=== PATIENT | female | born 1940 | race Caucasian/White ===

== ENCOUNTER 2017-12-09 09:22 | Day surgery (SDC) | payer MEDICARE, BC ==
[~2017-12-09 09:22] MED LIST: ALBU90OI INH; AMLO5 PO; ARTHRITIS PAIN PO; ASPI81CH; ASPI81CH PO; ATOR10; ATOR20 PO; Amlodipine Besy10 MG; CRANBERRY PO; ENOX40I SC; EYE VITAMIN PO; GEMF600 PO; Gemfibrozil600 MG; Glimepiride4 MG; Glimepiride4 MG PO; Hair, Skin & N1 EACH PO; KRILL OIL PO; KRILL OIL500 MG; LOSARTAN-HCTZ1 EAC1; LOSHYD100 PO; METF500 PO; METO10; Metformin HCl1000 MG; OXYACE5T PO; Omeprazole20 M1 PO; SITA50T2; SITA50T2 PO
== END 2017-12-09 22:45 | disposition home or self-care (01) ==
LOC: CT 09:22
PROVIDERS: Internal Medicine Nephrology; Radiology Diagnostic Radiology
PROC: 0TB13ZX Excision of Left Kidney, Percutaneous Approach, Diagnostic (ICD-10-PCS; principal; 2017-12-09 11:00)
DX: E11.22 Type 2 diabetes mellitus with diabetic chronic kidney disease (principal); I12.9 Hypertensive chronic kidney disease with stage 1 through stage 4 chronic kidney disease, or unspecified chronic kidney disease; E11.21 Type 2 diabetes mellitus with diabetic nephropathy; N18.3 Chronic kidney disease, stage 3 (moderate); N25.81 Secondary hyperparathyroidism of renal origin; E78.00 Pure hypercholesterolemia, unspecified
CPT/HCPCS: 50200; 77012; 88305; 88313; 88329; 88346; 88348; 88350

== ENCOUNTER → 2018-02-12 | Outpatient (CLI) | payer MEDICARE, BC ==
[2018-02-12 16:13] LABS: Percent Saturation 30.5 % (15.0-50.0)
== END | disposition home or self-care (01) ==
LOC: LAB SHORT 11:30 → LAB 11:30
PROVIDERS: Internal Medicine Hematology & Oncology
DX: D50.0 Iron deficiency anemia secondary to blood loss (chronic) (principal)
CPT/HCPCS: 82728; 83540; 83550

== ENCOUNTER → 2018-04-12 | Outpatient (CLI) | payer MEDICARE, BC ==
[2018-04-12 17:27] LABS: Percent Saturation 29.8 % (15.0-50.0)
== END ==
LOC: LAB 10:42 → LAB SHORT 10:42
PROVIDERS: Internal Medicine Hematology & Oncology
DX: D51.9 Vitamin B12 deficiency anemia, unspecified (principal); D50.0 Iron deficiency anemia secondary to blood loss (chronic)
CPT/HCPCS: 82607; 82728; 82746; 83540; 83550

== ENCOUNTER → 2018-09-23 | Outpatient (CLI) | payer MEDICARE, BC ==
[2018-09-23 09:06] LABS: BASOPHILS ABSOLUTE AUTO 0.04 K/mm3 (0.00-0.23); BASOPHILS PERCENT AUTO 1 % (0-2); EOSINOPHILS ABSOLUTE AUTO 0.26 K/mm3 (0.00-0.68); EOSINOPHILS PERCENT AUTO 4 % (0-6); Hematocrit 31.1 % (33.0-51.0); Hemoglobin 10.3 g/dL (11.5-16.0); IMMATURE GRAN ABSOLUTE AUTO 0.02 K/mm3 (0.00-0.10); IMMATURE GRAN PERCENT AUTO 0 % (0-1); LYMPHOCYTES ABSOLUTE AUTO 0.62 K/mm3 (0.84-5.20); LYMPHOCYTES PERCENT AUTO 10 % (21-46); MONOCYTES ABSOLUTE AUTO 0.42 K/mm3 (0.16-1.47); MONOCYTES PERCENT AUTO 7 % (4-13); Mean Corpuscular HGB 29.4 pg (26.0-34.0); Mean Corpuscular HGB Conc 33.1 g/dL (31.5-36.5); Mean Corpuscular Volume 89 fL (80-100); Mean Platelet Volume 10.3 fL (9.1-12.4); NEUTROPHILS ABSOLUTE AUTO 4.59 K/mm3 (1.96-9.15); NEUTROPHILS PERCENT AUTO 77 % (41-73); Platelet Count 157 K/mm3 (150-400); RDW Coefficient Variation 14.6 % (11.7-14.2); RDW Standard Deviation 47.2 fL (35.1-46.3); White Blood Cell Count 5.95 K/mm3 (4.00-11.30)
[2018-09-23 09:22] LABS: Albumin, Blood 2.8 g/dL (3.4-5.0); Albumin/Globulin Ratio 0.7 (0.8-1.8); Bilirubin, Total 0.6 mg/dL (0.1-1.0); Bun/Creatinine Ratio 17.7 (12.0-20.0); Calcium, Blood 9.4 mg/dL (8.5-10.1); Creatinine, Blood 1.58 mg/dL (0.40-1.00); Globulin, Blood 3.8 g/dL (2.2-4.0); Potassium, Blood 3.4 mmol/L (3.5-5.5); Total Protein, Blood 6.6 g/dL (6.4-8.2)
== END ==
LOC: LAB EV 08:58 → LAB SHORT 08:58
PROVIDERS: Physician Assistant
DX: I51.7 Cardiomegaly (principal)
CPT/HCPCS: 80053; 83880; 85025

== ENCOUNTER → 2018-12-06 | Outpatient (CLI) | payer MEDICARE, BC ==
[2018-12-06 15:20] LABS: Bun/Creatinine Ratio 18.9 (12.0-20.0); Creatinine, Blood 1.85 mg/dL (0.40-1.00); Potassium, Blood 3.4 mmol/L (3.5-5.5)
== END | disposition home or self-care (01) ==
LOC: LAB SHORT 15:05 → LAB EV 15:05
PROVIDERS: Physician Assistant Medical
DX: J18.1 Lobar pneumonia, unspecified organism (principal)
CPT/HCPCS: 80048; 83880

== ENCOUNTER → 2018-12-22 | Outpatient (CLI) | payer MEDICARE, BC | END | disposition home or self-care (01) | LOC: LAB 15:07 → LAB SHORT 15:07 | PROVIDERS: Internal Medicine Hematology & Oncology | DX: D50.0 Iron deficiency anemia secondary to blood loss (chronic) (principal) | CPT/HCPCS: 83540; 83550 ==

== ENCOUNTER → 2019-01-12 | Outpatient (CLI) | payer MEDICARE, BC ==
[2019-01-12 15:55] LABS: BASOPHILS ABSOLUTE AUTO 0.04 K/mm3 (0.00-0.23); BASOPHILS PERCENT AUTO 1 % (0-2); EOSINOPHILS ABSOLUTE AUTO 0.12 K/mm3 (0.00-0.68); EOSINOPHILS PERCENT AUTO 2 % (0-6); Hematocrit 29.5 % (33.0-51.0); IMMATURE GRAN ABSOLUTE AUTO 0.02 K/mm3 (0.00-0.10); IMMATURE GRAN PERCENT AUTO 0 % (0-1); LYMPHOCYTES ABSOLUTE AUTO 0.67 K/mm3 (0.84-5.20); LYMPHOCYTES PERCENT AUTO 10 % (21-46); MONOCYTES PERCENT AUTO 5 % (4-13); Mean Corpuscular HGB 29.9 pg (26.0-34.0); Mean Corpuscular HGB Conc 33.9 g/dL (31.5-36.5); Mean Corpuscular Volume 88 fL (80-100); NEUTROPHILS ABSOLUTE AUTO 5.33 K/mm3 (1.96-9.15); NEUTROPHILS PERCENT AUTO 82 % (41-73); Platelet Count 164 K/mm3 (150-400); RDW Coefficient Variation 16.1 % (11.7-14.2); RDW Standard Deviation 51.8 fL (35.1-46.3); Red Blood Cell Count 3.34 M/mm3 (3.80-5.20); White Blood Cell Count 6.48 K/mm3 (4.00-11.30)
== END ==
LOC: LAB EV 15:48 → LAB SHORT 15:48
PROVIDERS: Physician Assistant Medical
DX: M79.673 Pain in unspecified foot (principal)
CPT/HCPCS: 84550; 85025

== ENCOUNTER → 2020-01-17 | Outpatient (CLI) | payer MEDICARE, BC ==
[2020-01-17 20:59] LABS: Albumin, Blood 1.9 g/dL (3.4-5.0); Albumin/Globulin Ratio 0.6 (0.8-1.8); Bilirubin, Direct 0.1 mg/dL (0.0-0.3); Bilirubin, Indirect 0.3 mg/dL (0.1-0.7); Bilirubin, Total 0.4 mg/dL (0.1-1.0); Bun/Creatinine Ratio 19.5 (12.0-20.0); Calcium, Blood 7.3 mg/dL (8.5-10.1); Creatinine, Blood 2.36 mg/dL (0.40-1.00); Globulin, Blood 3.2 g/dL (2.2-4.0); Potassium, Blood 4.2 mmol/L (3.5-5.5); Total Protein, Blood 5.1 g/dL (6.4-8.2)
== END | disposition home or self-care (01) ==
LOC: LAB SHORT 19:29 → LAB 19:29
PROVIDERS: Internal Medicine Hematology & Oncology
DX: C22.0 Liver cell carcinoma (principal)
CPT/HCPCS: 80053; 82105; 82248

== ENCOUNTER 2020-02-21 08:03 | Day surgery (SDC) | payer MEDICARE, BC ==
[~2020-02-21] VITALS: Ht 154.9 cm; Wt 77.7 kg
[~2020-02-21 08:03] MED LIST changes: +BASAGLAR K100 UNIT/3 SC; +BUME2 PO; +Catapres-Tts 11 EACH TOP; +FURO80 PO; +LOSARTAN POTAS100 M1 PO; +METO5 PO; +Nexavar200 MG PO; +POTA10T PO
[2020-02-21] MEDS ORDERED: CLON.1 PO (08:40)
--- NOTE | 2020-02-21 12:00 | NUR ---
PT BACK TO RECOVERY ROOM VIA BED AFTER PROCEDURE. AWAKE AND ALERT. DENIES ANY PAIN OR DISCOMFORT. VSS. RIGHT PERM CATH CHEST AND JUGULAR SITE CLEAN AND DRY.
--- NOTE | 2020-02-21 12:42 | NUR ---
PT EATING LUNCH, DENIES NEEDS. CALL LIGHT IN REACH. RIGHT CHEST AND JUGULAR SITES REMAIN CLEAN, DRY, AND INTACT.
--- NOTE | 2020-02-21 13:34 | NUR ---
PT SLEEPING ON SIDE, CALL LIGHT IN REACH. VSS.
--- NOTE | 2020-02-21 13:50 | NUR ---
PERM CATH VISIBLE AT JUGULAR ACCESS SITE. DR RICO NOTIFIED, PLACED SUTURE AT SITE. DRESSED WITH STERI STRIPS AND CLOTH DOT. NO BLEEDING OR OOZING NOTED FROM JUGULAR SITE OR TUNNELED CHEST SITE.
--- NOTE | 2020-02-21 14:11 | NUR ---
IV DC'D, CATH INTACT. PT GIVEN DC INSTRUCTIONS AND FOLLOW UP INFO, VERBALIZED UNDERSTANDING. WILL FOLLOW UP AT [facility] TOMORROW MORNING SCHEDULED. VSS. OUT TO CAR VIA WHEELCHAIR.
== END 2020-02-21 14:00 | disposition home or self-care (01) ==
LOC: MHTC 08:03
DX: I12.0 Hypertensive chronic kidney disease with stage 5 chronic kidney disease or end stage renal disease (principal); E11.22 Type 2 diabetes mellitus with diabetic chronic kidney disease; N18.6 End stage renal disease; E78.5 Hyperlipidemia, unspecified; D63.1 Anemia in chronic kidney disease; J45.909 Unspecified asthma, uncomplicated; Z88.8 Allergy status to other drugs, medicaments and biological substances; Z79.899 Other long term (current) drug therapy; Z79.4 Long term (current) use of insulin; C22.8 Malignant neoplasm of liver, primary, unspecified as to type
CPT/HCPCS: 36558; 76937; 99152; C1750; C1769; C1894; J1644; J2250; J3010; J7040

== ENCOUNTER 2020-05-23 12:38 | Day surgery (SDC) | payer MEDICARE, BC, OTHER ==
[~2020-05-23] VITALS: Ht 157.5 cm; Wt 83.0 kg
[~2020-05-23 12:38] MED LIST changes: +CLON.1 PO; +CLOP75 PO; +KRILL OIL 1,001 EACH PO; +UREA226.8 GM TOP
[2020-05-23 14:33] LABS: BASOPHILS ABSOLUTE AUTO 0.05 K/mm3 (0.00-0.23); BASOPHILS PERCENT AUTO 1 % (0-2); EOSINOPHILS ABSOLUTE AUTO 0.17 K/mm3 (0.00-0.68); EOSINOPHILS PERCENT AUTO 3 % (0-6); Hematocrit 28.3 % (33.0-51.0); IMMATURE GRAN ABSOLUTE AUTO 0.02 K/mm3 (0.00-0.10); IMMATURE GRAN PERCENT AUTO 0 % (0-1); LYMPHOCYTES ABSOLUTE AUTO 1.03 K/mm3 (0.84-5.20); LYMPHOCYTES PERCENT AUTO 18 % (21-46); MONOCYTES PERCENT AUTO 7 % (4-13); Mean Corpuscular HGB 28.4 pg (26.0-34.0); Mean Corpuscular HGB Conc 31.8 g/dL (31.5-36.5); Mean Corpuscular Volume 89 fL (80-100); Mean Platelet Volume 10.2 fL (9.1-12.4); NEUTROPHILS ABSOLUTE AUTO 4.21 K/mm3 (1.96-9.15); NEUTROPHILS PERCENT AUTO 72 % (41-73); Platelet Count 185 K/mm3 (150-400); RDW Coefficient Variation 19.3 % (11.7-14.2); RDW Standard Deviation 63.7 fL (35.1-46.3); Red Blood Cell Count 3.17 M/mm3 (3.80-5.20); White Blood Cell Count 5.88 K/mm3 (4.00-11.30)
[2020-05-23 14:53] LABS: Bun/Creatinine Ratio 13.4 (12.0-20.0); Calcium, Blood 7.8 mg/dL (8.5-10.1); Creatinine, Blood 3.73 mg/dL (0.40-1.00); Potassium, Blood 3.7 mmol/L (3.5-5.5)
== END 2020-05-23 22:50 | disposition home or self-care (01) ==
LOC: MHTC 12:38
PROVIDERS: Radiology Diagnostic Radiology
DX: I12.0 Hypertensive chronic kidney disease with stage 5 chronic kidney disease or end stage renal disease (principal); E11.22 Type 2 diabetes mellitus with diabetic chronic kidney disease; N18.6 End stage renal disease; J45.909 Unspecified asthma, uncomplicated; D63.1 Anemia in chronic kidney disease; Z99.2 Dependence on renal dialysis; Z88.1 Allergy status to other antibiotic agents; Z88.8 Allergy status to other drugs, medicaments and biological substances; Z79.899 Other long term (current) drug therapy; E78.5 Hyperlipidemia, unspecified; Z79.4 Long term (current) use of insulin
CPT/HCPCS: 76937; 80048; 82947; 85025; 85347; 99152; 99153; C1725; C1769; C1894; J1644; J2250; J3010; J7030; J7040; Q9967

== ENCOUNTER 2020-06-11 00:41 | Day surgery (SDC) | payer MEDICARE, BC | END 2020-06-11 23:00 | disposition home or self-care (01) | LOC: WOUND 00:41 | DX: I96 Gangrene, not elsewhere classified (principal); L89.150 Pressure ulcer of sacral region, unstageable; I12.0 Hypertensive chronic kidney disease with stage 5 chronic kidney disease or end stage renal disease; E11.22 Type 2 diabetes mellitus with diabetic chronic kidney disease; N18.6 End stage renal disease; D63.1 Anemia in chronic kidney disease; E78.5 Hyperlipidemia, unspecified; J45.909 Unspecified asthma, uncomplicated; K74.60 Unspecified cirrhosis of liver; E11.36 Type 2 diabetes mellitus with diabetic cataract; H26.9 Unspecified cataract; E11.52 Type 2 diabetes mellitus with diabetic peripheral angiopathy with gangrene; M10.9 Gout, unspecified; Z85.828 Personal history of other malignant neoplasm of skin; Z85.05 Personal history of malignant neoplasm of liver; Z92.21 Personal history of antineoplastic chemotherapy; Z79.4 Long term (current) use of insulin; Z79.02 Long term (current) use of antithrombotics/antiplatelets; Z79.899 Other long term (current) drug therapy; Z99.2 Dependence on renal dialysis; Z96.652 Presence of left artificial knee joint; Z88.8 Allergy status to other drugs, medicaments and biological substances | CPT/HCPCS: G0463 ==

== ENCOUNTER 2020-06-18 00:31 | Day surgery (SDC) | payer MEDICARE, BC | END 2020-06-18 22:39 | disposition home or self-care (01) | LOC: WOUND 00:31 | DX: L89.159 Pressure ulcer of sacral region, unspecified stage (principal); I10 Essential (primary) hypertension; E78.5 Hyperlipidemia, unspecified; E11.9 Type 2 diabetes mellitus without complications; J45.909 Unspecified asthma, uncomplicated; Z79.899 Other long term (current) drug therapy; Z79.4 Long term (current) use of insulin ==

== ENCOUNTER 2020-06-20 13:59 | Day surgery (SDC) | payer MEDICARE, BC ==
[~2020-06-20] VITALS: Ht 157.5 cm; Wt 84.0 kg
[2020-06-20] MEDS ORDERED: BASAGLAR SC (14:01)
--- NOTE | 2020-06-20 19:35 | NUR ---
PT TO ROOM AT APPROX 1855; BEDSIDE RPEORT FORM STEFANI MOURA. BEDSIDE REPORT GIVEN TO ONCOMING RN. VSS. TR BAND TO RIGHT RADIAL AND INCISION NOTED TO SHEMAR WITH TEGADERM NOTED TO HAVE SMALL AMOUNT OF BLOOD UNDER DRESSING.
--- NOTE | 2020-06-20 21:25 | NUR ---
DISCHARGE: TR BAND IN PLACE FOR ONE HOUR DEFLATED; NO S/S OF BLEEDING. BRUISING NOTED ABOVE TR BAND. NO CHANGES TO OTHER SITES PER ASSESSMENT. TEGADERM PLACED AND TR BAND REMOVED; ARMBOARD IN PLACE. PATIENT EDUCATED ON DISCHARGE INSTRUCTIONS; PAPERWORK SIGNED. IV FROM LEFT A/C REMOVED. PATIENT ASSISTED IN PUTTING HER CLOTHES BACK ON; ESCORTED OUT OF UNIT WITH BELONGINGS AND DISCHARGE PAPERWORK VIA WHEELCHAIR BY KP MARTINES; BRANDIE PICKED HER UP.
== END 2020-06-20 21:20 | disposition home or self-care (01) ==
LOC: MHTC 13:59 → PCU 18:49 → MHTC 21:20
DX: Z45.2 Encounter for adjustment and management of vascular access device (principal); I12.0 Hypertensive chronic kidney disease with stage 5 chronic kidney disease or end stage renal disease; E11.22 Type 2 diabetes mellitus with diabetic chronic kidney disease; N18.6 End stage renal disease; J44.9 Chronic obstructive pulmonary disease, unspecified; Z99.2 Dependence on renal dialysis; D63.1 Anemia in chronic kidney disease; Z88.1 Allergy status to other antibiotic agents; Z79.899 Other long term (current) drug therapy; Z79.4 Long term (current) use of insulin
CPT/HCPCS: 36902; 37607; 76937; 93005; 93010; 99152; 99153; C1725; C1769; C1894; J1644; J2250; J3010; J7030; Q9967

== ENCOUNTER 2020-06-22 10:59 | Observation (INO) | payer MEDICARE, BC ==
[~2020-06-22] VITALS: Ht 157.5 cm; Wt 83.6 kg
[~2020-06-22 10:59] MED LIST changes: +BASAGLAR SC
[2020-06-22 11:39] LABS: BASOPHILS ABSOLUTE AUTO 0.04 K/mm3 (0.00-0.23); BASOPHILS PERCENT AUTO 0 % (0-2); EOSINOPHILS ABSOLUTE AUTO 0.07 K/mm3 (0.00-0.68); EOSINOPHILS PERCENT AUTO 1 % (0-6); Hematocrit 27.4 % (33.0-51.0); Hemoglobin 8.4 g/dL (11.5-16.0); IMMATURE GRAN ABSOLUTE AUTO 0.08 K/mm3 (0.00-0.10); IMMATURE GRAN PERCENT AUTO 1 % (0-1); LYMPHOCYTES ABSOLUTE AUTO 0.56 K/mm3 (0.84-5.20); LYMPHOCYTES PERCENT AUTO 5 % (21-46); MONOCYTES ABSOLUTE AUTO 0.52 K/mm3 (0.16-1.47); MONOCYTES PERCENT AUTO 5 % (4-13); Mean Corpuscular HGB 27.6 pg (26.0-34.0); Mean Corpuscular HGB Conc 30.7 g/dL (31.5-36.5); Mean Corpuscular Volume 90 fL (80-100); Mean Platelet Volume 9.6 fL (9.1-12.4); NEUTROPHILS ABSOLUTE AUTO 10.41 K/mm3 (1.96-9.15); NEUTROPHILS PERCENT AUTO 89 % (41-73); Platelet Count 266 K/mm3 (150-400); RDW Coefficient Variation 18.4 % (11.7-14.2); RDW Standard Deviation 59.7 fL (35.1-46.3); Red Blood Cell Count 3.04 M/mm3 (3.80-5.20); White Blood Cell Count 11.68 K/mm3 (4.00-11.30)
[2020-06-22 12:25] LABS: Albumin, Blood 2.2 g/dL (3.4-5.0); Albumin/Globulin Ratio 0.5 (0.8-1.8); Bilirubin, Total 0.6 mg/dL (0.1-1.0); Bun/Creatinine Ratio 14.9 (12.0-20.0); Calcium, Blood 7.7 mg/dL (8.5-10.1); Creatinine, Blood 2.89 mg/dL (0.40-1.00); Globulin, Blood 4.8 g/dL (2.2-4.0); Potassium, Blood 3.6 mmol/L (3.5-5.5)
[2020-06-22 12:32] LABS: Troponin I 0.691 ng/mL (0.000-0.040)
[2020-06-22] MEDS ORDERED: PLAVIX75 MG PO (13:46)
[2020-06-22] MEDS ORDERED: CALCIUM ACETAT667 M2 PO (13:46)
[2020-06-22] MEDS ORDERED: LOSA50 PO (13:47)
[2020-06-22] MEDS ORDERED: LANTUS SOL100 UNIT/1 (13:48)
[2020-06-22] MEDS ORDERED: CLON.1 PO (17:19)
--- NOTE | 2020-06-22 18:20 | NUR ---
PT ARRIVED TO THE UNIT VIA BED. SHE WAS ORIENTED TO THE ROOM. REPORTS MINIMAL CHEST PAIN. CARDIOLOGY CONSULTED. PLAN IS TO REPEAT TROPONINS AND FOLLOW TRENDS. WILL RECIEVE ECHO TOMORROW. POSSIBLE ANGIO OR STRESS TEST DEPENDING ON LABS.
[2020-06-22 18:50] LABS: Creatine Kinase MB 1.3 ng/mL (0.0-3.6); Creatine Kinase MB Index 1.7 (0.0-4.0); Troponin I 0.481 ng/mL (0.000-0.040)
--- NOTE | 2020-06-22 21:30 | NUR ---
ASSUMED CARE. AOX3, FRAILE APPEARING. CAME IN FOR CHEST PAIN MID-STERNUM THAT IS PRESENT WHEN SHE TAKES A DEEP BREATH AND OCCATIONALLY IS THERE THROUGHOUT THE DAY. DENIES ANY BLURRED VISION, DIZZINESS, NUMBNESS OR TINGLING, OR RADIATING PAIN. LUNG SOUNDS ARE CLEAR. REGULAR BM, ON DIALYSIS, MAKES LITTLE URINE. SKIN IS PALE, COOL, DRY. 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 SHE HAD ONE REMOVED FROM RIGHT UPPER CHEST A COUPLE MONTHS AGO AND THEY CUT DO DEEP, IT IS NOW AN OPEN WOUND TO THE PERMACATH TUBE. STAGE 3 PRESSURE ULCER TO COCCYX WITH 10% ESCAR, REST PALE PINK TISSUE. REDNESS ACROSS BOTTOM. PICTURES TAKEN, AND ON CHART. DRESSINGS CHANGED. DENIES ANY NEEDS JUST WANTS TO SLEEP. CALL LIGHT IN REACH.
[2020-06-22 21:31] LABS: Source, Urine Clean Catch
--- NOTE | 2020-06-22 21:36 | NUR ---
CALLED DR. IVY PER HIS REQUEST. ORDER RECEIVED FOR SOLUMEDROL 125MG IV, BLOOD CULTURES ON PERMA CATH, DIALYSIS TONIGHT, LEVAQUIN 500MG IV NOW. ua SENT TO LAB.
[2020-06-22 21:38] LABS: Appearance, Urine Clear (Clear); Bilirubin, Urine Neg (Neg); Blood, Urine Neg (Neg); Color, Urine Yellow (P-Yellow); Glucose Qualitative, Urine 1+ (Neg); Ketones, Urine Neg (Neg); Leukocyte Esterase, Urine Neg (Neg); Nitrite, Urine Neg (Neg); Protein, Urine 4+ (Neg); Urobilinogen, Urine NORM (Normal)
[2020-06-22 21:44] LABS: Red Blood Cells, Urine 0-2 /hpf (0-2); Squamous Epithelial Cells Mod /hpf (Few); White Blood Cells, Urine 0-2 /hpf (0-5)
[2020-06-22 21:45] LABS: Bacteria Mod /hpf
--- NOTE | 2020-06-22 22:11 | NUR ---
RECEIVED CALL FROM CHARGE REPORTING THAT DIALYSIS WILL BE HERE IN THE AM FOR DIALYSIS. CALLED DR. IVY AND VERIFIED. ASKED FOR ORDER FOR WOUND CULTURES, RECEIVED. PLAN IS TO DO DIALYSIS IN AM, WITH BLOOD CULTURES ON PERMA CATH. HOLD LEVAQUIN FOR NOW. COLLECTED WOUND CULTURES AND SENT TO LAB.
[2020-06-23 01:31] LABS: BASOPHILS ABSOLUTE AUTO 0.02 K/mm3 (0.00-0.23); BASOPHILS PERCENT AUTO 0 % (0-2); EOSINOPHILS PERCENT AUTO 0 % (0-6); Hematocrit 24.9 % (33.0-51.0); Hemoglobin 7.7 g/dL (11.5-16.0); IMMATURE GRAN ABSOLUTE AUTO 0.17 K/mm3 (0.00-0.10); IMMATURE GRAN PERCENT AUTO 1 % (0-1); LYMPHOCYTES ABSOLUTE AUTO 0.42 K/mm3 (0.84-5.20); LYMPHOCYTES PERCENT AUTO 3 % (21-46); MONOCYTES ABSOLUTE AUTO 0.31 K/mm3 (0.16-1.47); MONOCYTES PERCENT AUTO 2 % (4-13); Mean Corpuscular HGB 27.9 pg (26.0-34.0); Mean Corpuscular HGB Conc 30.9 g/dL (31.5-36.5); Mean Corpuscular Volume 90 fL (80-100); Mean Platelet Volume 10.2 fL (9.1-12.4); NEUTROPHILS ABSOLUTE AUTO 12.81 K/mm3 (1.96-9.15); NEUTROPHILS PERCENT AUTO 93 % (41-73); Platelet Count 227 K/mm3 (150-400); RDW Coefficient Variation 18.8 % (11.7-14.2); RDW Standard Deviation 61.8 fL (35.1-46.3); Red Blood Cell Count 2.76 M/mm3 (3.80-5.20); White Blood Cell Count 13.73 K/mm3 (4.00-11.30)
[2020-06-23 01:47] LABS: Anion Gap 10 mmol/L (6-16); Blood Urea Nitrogen 53 mg/dL (8-24); Bun/Creatinine Ratio 14.5 (12.0-20.0); CO2, Blood 29 mmol/L (21-32); Calcium, Blood 7.6 mg/dL (8.5-10.1); Chloride, Blood 95 mmol/L (98-108); Creatinine, Blood 3.66 mg/dL (0.40-1.00); Glomerular Filtration Rate 13 (60-); Glucose, Blood 196 mg/dL (70-99); Magnesium, Blood 1.9 mg/dL (1.6-2.4); Phosphorus, Blood 4.4 mg/dL (2.5-4.9); Potassium, Blood 4.1 mmol/L (3.5-5.5); Sodium, Blood 134 mmol/L (136-145)
[2020-06-23 01:50] LABS: CPK Creatine Kinase 67 U/L (26-193); Troponin I 0.406 ng/mL (0.000-0.040)
[2020-06-23 02:00] LABS: Creatine Kinase MB <1.0 ng/mL (0.0-3.6); Creatine Kinase MB Index Unable to Calculate (0.0-4.0)
--- NOTE | 2020-06-23 02:27 | NUR ---
TAX ACCOUNTING ASSISTANT CALLED AND REPORTED THE PATIENT CONVERTED INTO AFIB BUT IS RUNNING 80-90'S AND HOLDING. PATIENT IS SLEEPING COMFORTABLY IN ROOM. WILL MONITOR.
--- NOTE | 2020-06-23 04:57 | NUR ---
SHIFT SUMMARY: AOX3, 1 ASSIST WITH WALKER. REPORTS CHEST PAIN ONLY OCCURS WITH DEEP BREATHING. LUNG SOUNDS CLEAR T/O. DENIES ANY COUGH OR CONGESTIONS. HEADACHES OFF AND ON. DR. IVY ORDERED DIALSYS WHICH WILL BE THIS AM. BLOOD CULTURE OF PERMA CATH WILL BE DONE BEFORE DIALSYS. 125MCQ OF SOLUMEDROL WAS GIVEN PER ORDER, WHICH SHE REPORTED HELPED TO IMPROVE HER CHEST PAIN. WOULD CULTURES PERFORMED ON WOUNDS. WOUND ON RIGHT CHEST WALL FROM SKIN CANCER BEING REMOVED, OPEN DOWN TO PERMACATH TUBING, CLEANSED SITE AND COVERED WITH FOAM DRESSING, COCCYX STAGE 3 PRESSURE ULCER CLEANSED AND FOAM DRESSING APPLIED. WILL NEED ORDERS FOR WOUND CARE WITH CALCIUM ALGINATE. REDNESS TO BOTTOM. VS WNL, AFEBRILE, BLOOD SUGAR 232.ANTIBOTIC ON HOLD TILL BLOOD CULTURE PERFORMED. SLEPT WELL THROUGHOUT THE NIGHT. WILL REPORT TO DAY SHIFT. CALL LIGHT IN REACH.
[2020-06-23 12:41] LABS: CPK Creatine Kinase 58 U/L (26-193); Troponin I 0.252 ng/mL (0.000-0.040)
[2020-06-23 12:46] LABS: Creatine Kinase MB <1.0 ng/mL (0.0-3.6); Creatine Kinase MB Index Unable to Calculate (0.0-4.0)
--- NOTE | 2020-06-23 17:18 | NUR ---
SHIFT SUMMARY. A&OX4, SBA WITH FWW TO BATHROOM. PT DENIES PAIN, SOB, N/V. PT REPORTED CHEST DISCOMFORT HAD SUBSIDED THIS AM PRIOR TO CHANGE OF SHIFT. DIALYSIS AND FIRST PART OF CARDIAC STRESS TEST COMPLETED THIS AM. PT CONVERTED TO AFIB THEN TO AFLUTTER DURING DIALYSIS PER MEDICAL DOCTOR NUCLEAR MEDICINE. PT CONVERTED BACK TO NSR ONCE BACK TO MEDICAL FLOOR. PT IS NOW INTERMITTENTLY CONVERTING FROM NSR TO NSR WITH PVC'S TO AFIB AND BACK TO NSR, RATE DOES NOT CHANGE WITH RYTHM CHANGE. NO OTHER CHANGES OR CONCERNS.
--- NOTE | 2020-06-24 04:36 | NUR ---
SAWMILL SUPERVISOR SUMMARY PT HAD AN UNEVENTFUL NIGHT DENYING ANY C/P OR NAUSEA. PT SLEPT FOR MOST OF THE NIGHT AND IS CURRETLY SITTING UP IN BED READING A BOOK. PT IS AXO X4 AND IS ABLE TO MAKE HER NEEDS KNOWN.
[2020-06-24 05:13] LABS: Hematocrit 25.2 % (33.0-51.0); Hemoglobin 7.9 g/dL (11.5-16.0)
[2020-06-24 05:31] LABS: Anion Gap 9 mmol/L (6-16); Blood Urea Nitrogen 48 mg/dL (8-24); Bun/Creatinine Ratio 13.6 (12.0-20.0); CO2, Blood 32 mmol/L (21-32); Calcium, Blood 8.5 mg/dL (8.5-10.1); Chloride, Blood 97 mmol/L (98-108); Creatinine, Blood 3.53 mg/dL (0.40-1.00); Glomerular Filtration Rate 13 (60-); Glucose, Blood 139 mg/dL (70-99); Magnesium, Blood 2.2 mg/dL (1.6-2.4); Phosphorus, Blood 4.8 mg/dL (2.5-4.9); Potassium, Blood 3.5 mmol/L (3.5-5.5); Sodium, Blood 138 mmol/L (136-145)
[2020-06-24] MEDS ORDERED: HYDR1TAB94 PO (13:30)
--- NOTE | 2020-06-24 16:59 | NUR ---
1650 PT DISCHARGED HOME VIA PERSONAL VEHICLE ACCOMPANIED AND DRIVEN BY DAUGHTER. ESCORTED TO FACILITY ENTRANCE VIA W/C BY SN. IV REMOVED. D/C INSTRUCTIONS REVIEWED WITH PT AND COPY PROVIDED. HARD SCRIPT FOR NORCO GIVEN TO PT. DIALYSIS COMPLETED THIS AM. WOUND CARE TO SURGICAL SITE ABOVE PERMCATH INSERTION SITE AND COCCYX COMPLETED PRIOR TO D/C TODAY. NO NEW CHANGES OR CONCERNS.
== END 2020-06-24 16:50 | disposition home or self-care (01) ==
LOC: ER 10:59 → MEDS 11:00
PROVIDERS: Emergency Medicine; Internal Medicine Interventional Cardiology; Internal Medicine Nephrology; ADMIT Internal Medicine
DX: R07.9 Chest pain, unspecified (principal); R79.89 Other specified abnormal findings of blood chemistry; R06.02 Shortness of breath; I13.2 Hypertensive heart and chronic kidney disease with heart failure and with stage 5 chronic kidney disease, or end stage renal disease; E11.22 Type 2 diabetes mellitus with diabetic chronic kidney disease; N18.6 End stage renal disease; I50.33 Acute on chronic diastolic (congestive) heart failure; D63.1 Anemia in chronic kidney disease; E78.5 Hyperlipidemia, unspecified; D62 Acute posthemorrhagic anemia; I05.0 Rheumatic mitral stenosis; M19.90 Unspecified osteoarthritis, unspecified site; N25.81 Secondary hyperparathyroidism of renal origin; J44.9 Chronic obstructive pulmonary disease, unspecified; E87.1 Hypo-osmolality and hyponatremia; C22.8 Malignant neoplasm of liver, primary, unspecified as to type; Z79.02 Long term (current) use of antithrombotics/antiplatelets; Z79.4 Long term (current) use of insulin; Z79.899 Other long term (current) drug therapy; Z88.8 Allergy status to other drugs, medicaments and biological substances; Z99.2 Dependence on renal dialysis; Z87.891 Personal history of nicotine dependence; Z23 Encounter for immunization
CPT/HCPCS: 36415; 71046; 71260; 78452; 80053; 80069; 81001; 82550; 82553; 82947; 83690; 83735; 83880; 84484; 85014; 85018; 85025; 87040; 87070; 87075; 87077; 87086; 87186; 87205; 93005; 93010; 93017; 93306; 96372; 96374; 96375; 96376; 99285-25; A9270; A9270-GY; A9500; G0257; G0378; J0881; J2785; J2930; Q9967

== ENCOUNTER 2020-06-27 10:24 | Day surgery (SDC) | payer MEDICARE, BC ==
[~2020-06-27 10:24] MED LIST changes: -CALCIUM ACETAT667 M2 PO; -LANTUS SOL100 UNIT/1; -Nexavar200 MG PO; -PLAVIX75 MG PO
[2020-08-01] MEDS ORDERED: CLON.1 PO (17:04)
[2020-08-01] MEDS ORDERED: LOSA50 PO (17:08)
[2020-08-01] MEDS ORDERED: AURYXIA210 MG PO (17:09)
[2020-08-01] MEDS ORDERED: BASAGLAR K100 UNIT/6 SC (17:35)
[2020-08-02] MEDS ORDERED: HYDR1TAB94 PO (05:01)
== END 2020-06-27 14:00 | disposition home or self-care (01) ==
LOC: WOUND 10:24
DX: I96 Gangrene, not elsewhere classified (principal); L89.150 Pressure ulcer of sacral region, unstageable; I12.0 Hypertensive chronic kidney disease with stage 5 chronic kidney disease or end stage renal disease; E11.22 Type 2 diabetes mellitus with diabetic chronic kidney disease; N18.6 End stage renal disease; D63.1 Anemia in chronic kidney disease; E11.36 Type 2 diabetes mellitus with diabetic cataract; H26.9 Unspecified cataract; M10.9 Gout, unspecified; E78.5 Hyperlipidemia, unspecified; J45.909 Unspecified asthma, uncomplicated; Z92.21 Personal history of antineoplastic chemotherapy; Z99.2 Dependence on renal dialysis; Z96.652 Presence of left artificial knee joint; Z88.8 Allergy status to other drugs, medicaments and biological substances; Z79.02 Long term (current) use of antithrombotics/antiplatelets; Z79.899 Other long term (current) drug therapy
CPT/HCPCS: 87070; 87075; 87205

== ENCOUNTER → 2020-06-27 | Outpatient (CLI) | payer MEDICARE, BC ==
[~2020-06-27] MED LIST changes: +CALCIUM ACETAT667 M2 PO; +HYDR1TAB94 PO; +LANTUS SOL100 UNIT/1; +LOSA50 PO; +PLAVIX75 MG PO
[2020-06-27 15:26] LABS: Percent Saturation 38.5 % (15.0-50.0)
== END | disposition home or self-care (01) ==
LOC: LAB SHORT 13:56 → LAB 13:56
PROVIDERS: Internal Medicine Hematology & Oncology
DX: D50.0 Iron deficiency anemia secondary to blood loss (chronic) (principal)
CPT/HCPCS: 82728; 83540; 83550

== ENCOUNTER 2020-07-05 00:11 | Day surgery (SDC) | payer MEDICARE, BC ==
[~2020-07-05 00:11] MED LIST changes: +CALCIUM ACETAT667 M2 PO; +LANTUS SOL100 UNIT/1; +Nexavar200 MG PO; +PLAVIX75 MG PO
== END 2020-07-05 23:16 | disposition home or self-care (01) ==
LOC: WOUND 00:11
DX: L89.159 Pressure ulcer of sacral region, unspecified stage (principal); I10 Essential (primary) hypertension; E78.5 Hyperlipidemia, unspecified; J45.909 Unspecified asthma, uncomplicated; E11.9 Type 2 diabetes mellitus without complications

== ENCOUNTER 2020-07-12 08:39 | Day surgery (SDC) | payer MEDICARE, BC | END 2020-07-12 23:36 | disposition home or self-care (01) | LOC: WOUND 08:39 | DX: I96 Gangrene, not elsewhere classified (principal); L89.153 Pressure ulcer of sacral region, stage 3; E11.52 Type 2 diabetes mellitus with diabetic peripheral angiopathy with gangrene; E11.36 Type 2 diabetes mellitus with diabetic cataract; H26.9 Unspecified cataract; I13.2 Hypertensive heart and chronic kidney disease with heart failure and with stage 5 chronic kidney disease, or end stage renal disease; E11.22 Type 2 diabetes mellitus with diabetic chronic kidney disease; N18.6 End stage renal disease; I50.9 Heart failure, unspecified; D63.1 Anemia in chronic kidney disease; E78.5 Hyperlipidemia, unspecified; J45.909 Unspecified asthma, uncomplicated; M10.9 Gout, unspecified; E11.42 Type 2 diabetes mellitus with diabetic polyneuropathy; K21.9 Gastro-esophageal reflux disease without esophagitis; Z88.8 Allergy status to other drugs, medicaments and biological substances; Z79.4 Long term (current) use of insulin; Z79.02 Long term (current) use of antithrombotics/antiplatelets; Z79.899 Other long term (current) drug therapy; Z92.21 Personal history of antineoplastic chemotherapy; Z85.05 Personal history of malignant neoplasm of liver; Z96.659 Presence of unspecified artificial knee joint ==

== ENCOUNTER 2020-07-16 00:38 | Day surgery (SDC) | payer MEDICARE, BC | END 2020-07-16 23:16 | disposition home or self-care (01) | LOC: WOUND 00:38 | DX: L89.159 Pressure ulcer of sacral region, unspecified stage (principal) ==

== ENCOUNTER 2020-07-18 02:07 | Day surgery (SDC) | payer MEDICARE, BC | END 2020-07-18 23:17 | disposition home or self-care (01) | LOC: WOUND 02:07 | DX: I96 Gangrene, not elsewhere classified (principal); L89.153 Pressure ulcer of sacral region, stage 3; E11.52 Type 2 diabetes mellitus with diabetic peripheral angiopathy with gangrene; E11.36 Type 2 diabetes mellitus with diabetic cataract; H26.9 Unspecified cataract; M17.0 Bilateral primary osteoarthritis of knee; I12.0 Hypertensive chronic kidney disease with stage 5 chronic kidney disease or end stage renal disease; E11.22 Type 2 diabetes mellitus with diabetic chronic kidney disease; N18.6 End stage renal disease; D63.1 Anemia in chronic kidney disease; K74.60 Unspecified cirrhosis of liver; M10.9 Gout, unspecified; E78.5 Hyperlipidemia, unspecified; J45.909 Unspecified asthma, uncomplicated; Z88.2 Allergy status to sulfonamides; Z79.02 Long term (current) use of antithrombotics/antiplatelets; Z79.4 Long term (current) use of insulin; Z79.899 Other long term (current) drug therapy; Z92.21 Personal history of antineoplastic chemotherapy ==

== ENCOUNTER 2020-07-20 00:22 | Day surgery (SDC) | payer MEDICARE, BC | END 2020-07-20 22:52 | disposition home or self-care (01) | LOC: WOUND 00:22 | DX: I96 Gangrene, not elsewhere classified (principal); L89.153 Pressure ulcer of sacral region, stage 3; E11.52 Type 2 diabetes mellitus with diabetic peripheral angiopathy with gangrene; I12.0 Hypertensive chronic kidney disease with stage 5 chronic kidney disease or end stage renal disease; E11.22 Type 2 diabetes mellitus with diabetic chronic kidney disease; N18.6 End stage renal disease; D63.1 Anemia in chronic kidney disease; E11.36 Type 2 diabetes mellitus with diabetic cataract; H26.9 Unspecified cataract; J45.909 Unspecified asthma, uncomplicated; K74.60 Unspecified cirrhosis of liver; M10.9 Gout, unspecified; M19.90 Unspecified osteoarthritis, unspecified site; Z92.21 Personal history of antineoplastic chemotherapy; Z79.02 Long term (current) use of antithrombotics/antiplatelets; Z79.4 Long term (current) use of insulin; Z79.899 Other long term (current) drug therapy; Z88.8 Allergy status to other drugs, medicaments and biological substances ==

== ENCOUNTER 2020-07-23 01:09 | Day surgery (SDC) | payer MEDICARE, BC | END 2020-07-23 23:08 | disposition home or self-care (01) | LOC: WOUND 01:09 | DX: L89.159 Pressure ulcer of sacral region, unspecified stage (principal) ==

== ENCOUNTER 2020-07-25 00:56 | Day surgery (SDC) | payer MEDICARE, BC ==
[~2020-07-25 00:56] MED LIST changes: -CALCIUM ACETAT667 M2 PO; -LANTUS SOL100 UNIT/1; -Nexavar200 MG PO; -PLAVIX75 MG PO
[2020-07-25] MEDS ORDERED: AMLO5 PO (13:56)
[2020-07-25] MEDS ORDERED: UREA226.8 GM (13:58)
[2020-07-25] MEDS ORDERED: KRILL OIL 1,001 EACH PO (13:58)
[2020-08-01] MEDS ORDERED: CLON.1 PO (17:04)
[2020-08-01] MEDS ORDERED: LOSA50 PO (17:08)
[2020-08-01] MEDS ORDERED: AURYXIA210 MG PO (17:09)
[2020-08-01] MEDS ORDERED: BASAGLAR K100 UNIT/6 SC (17:35)
== END 2020-07-25 22:43 | disposition home or self-care (01) ==
LOC: WOUND 00:56
DX: I96 Gangrene, not elsewhere classified (principal); L89.153 Pressure ulcer of sacral region, stage 3; I12.0 Hypertensive chronic kidney disease with stage 5 chronic kidney disease or end stage renal disease; E11.22 Type 2 diabetes mellitus with diabetic chronic kidney disease; N18.6 End stage renal disease; D63.1 Anemia in chronic kidney disease; E11.36 Type 2 diabetes mellitus with diabetic cataract; H26.9 Unspecified cataract; J45.909 Unspecified asthma, uncomplicated; M10.9 Gout, unspecified; M19.90 Unspecified osteoarthritis, unspecified site; Z92.21 Personal history of antineoplastic chemotherapy; Z88.8 Allergy status to other drugs, medicaments and biological substances; Z79.02 Long term (current) use of antithrombotics/antiplatelets; Z79.4 Long term (current) use of insulin; Z79.899 Other long term (current) drug therapy
CPT/HCPCS: J3010; J7040

== ENCOUNTER 2020-07-25 12:55 | Day surgery (SDC) | payer MEDICARE, BC ==
[~2020-07-25] VITALS: Ht 157.5 cm; Wt 173.0 kg
[~2020-07-25 12:55] MED LIST changes: +CALCIUM ACETAT667 M2 PO; +LANTUS SOL100 UNIT/1; +Nexavar200 MG PO; +PLAVIX75 MG PO
[2020-07-25] MEDS ORDERED: AMLO5 PO (13:56)
[2020-07-25] MEDS ORDERED: CLON.1 PO (13:57)
[2020-07-25] MEDS ORDERED: KRILL OIL 1,001 EACH PO (13:58)
[2020-07-25] MEDS ORDERED: FURO40 PO (13:58)
[2020-07-25] MEDS ORDERED: UREA226.8 GM (13:58)
--- NOTE | 2020-07-25 19:13 | NUR ---
PT DRESSED, IV DC'D INTACT, DC'D BY WC BY THIS RN W WRIST SPLINT PLACED
== END 2020-07-25 22:43 | disposition home or self-care (01) ==
LOC: MHTC 12:55
DX: Z49.01 Encounter for fitting and adjustment of extracorporeal dialysis catheter (principal); I12.0 Hypertensive chronic kidney disease with stage 5 chronic kidney disease or end stage renal disease; E11.22 Type 2 diabetes mellitus with diabetic chronic kidney disease; N18.6 End stage renal disease; D63.1 Anemia in chronic kidney disease; E78.5 Hyperlipidemia, unspecified; J44.9 Chronic obstructive pulmonary disease, unspecified; M17.0 Bilateral primary osteoarthritis of knee; D50.9 Iron deficiency anemia, unspecified; E55.9 Vitamin D deficiency, unspecified; Z79.899 Other long term (current) drug therapy; Z88.8 Allergy status to other drugs, medicaments and biological substances; Z79.01 Long term (current) use of anticoagulants; Z79.4 Long term (current) use of insulin
CPT/HCPCS: 76937; 99152; 99153; C1769; C1894; J1644; J7030; Q9967

== ENCOUNTER 2020-07-27 00:38 | Day surgery (SDC) | payer MEDICARE, BC ==
[~2020-07-27 00:38] MED LIST changes: -CALCIUM ACETAT667 M2 PO; -LANTUS SOL100 UNIT/1; -Nexavar200 MG PO; -PLAVIX75 MG PO; +UREA226.8 GM
[2020-08-01] MEDS ORDERED: CLON.1 PO (17:04)
[2020-08-01] MEDS ORDERED: LOSA50 PO (17:08)
[2020-08-01] MEDS ORDERED: AURYXIA210 MG PO (17:09)
[2020-08-01] MEDS ORDERED: BASAGLAR K100 UNIT/6 SC (17:35)
[2020-08-02] MEDS ORDERED: HYDR1TAB94 PO (05:01)
== END 2020-07-27 23:58 | disposition home or self-care (01) ==
LOC: WOUND 00:38
DX: I96 Gangrene, not elsewhere classified (principal); L89.153 Pressure ulcer of sacral region, stage 3; E11.36 Type 2 diabetes mellitus with diabetic cataract; H26.9 Unspecified cataract; I12.0 Hypertensive chronic kidney disease with stage 5 chronic kidney disease or end stage renal disease; E11.22 Type 2 diabetes mellitus with diabetic chronic kidney disease; N18.6 End stage renal disease; D63.1 Anemia in chronic kidney disease; M10.9 Gout, unspecified; M19.90 Unspecified osteoarthritis, unspecified site; J45.909 Unspecified asthma, uncomplicated; K74.60 Unspecified cirrhosis of liver; Z88.8 Allergy status to other drugs, medicaments and biological substances; Z79.02 Long term (current) use of antithrombotics/antiplatelets; Z79.4 Long term (current) use of insulin; Z79.899 Other long term (current) drug therapy; Z92.21 Personal history of antineoplastic chemotherapy
CPT/HCPCS: G0463

== ENCOUNTER 2020-08-01 14:29 | Inpatient (IN) | payer MEDICARE, BC ==
[~2020-08-01] VITALS: Ht 157.5 cm; Wt 78.9 kg
[2020-08-01 15:09] LABS: BASOPHILS ABSOLUTE AUTO 0.02 K/mm3 (0.00-0.23); BASOPHILS PERCENT AUTO 0 % (0-2); EOSINOPHILS PERCENT AUTO 0 % (0-6); Hematocrit 35.1 % (33.0-51.0); Hemoglobin 10.5 g/dL (11.5-16.0); IMMATURE GRAN ABSOLUTE AUTO 0.14 K/mm3 (0.00-0.10); IMMATURE GRAN PERCENT AUTO 1 % (0-1); LYMPHOCYTES ABSOLUTE AUTO 0.83 K/mm3 (0.84-5.20); LYMPHOCYTES PERCENT AUTO 5 % (21-46); MONOCYTES ABSOLUTE AUTO 0.79 K/mm3 (0.16-1.47); MONOCYTES PERCENT AUTO 5 % (4-13); Mean Corpuscular HGB 27.7 pg (26.0-34.0); Mean Corpuscular HGB Conc 29.9 g/dL (31.5-36.5); Mean Corpuscular Volume 93 fL (80-100); Mean Platelet Volume 10.2 fL (9.1-12.4); NEUTROPHILS ABSOLUTE AUTO 13.58 K/mm3 (1.96-9.15); NEUTROPHILS PERCENT AUTO 89 % (41-73); NRBC ABSOLUTE 0.06 K/mm3 (0.00-0.02); NRBC Auto 0.4 /100 WBC (0.0-0.2); Platelet Count 286 K/mm3 (150-400); RDW Coefficient Variation 20.1 % (11.7-14.2); RDW Standard Deviation 67.2 fL (35.1-46.3); Red Blood Cell Count 3.79 M/mm3 (3.80-5.20); White Blood Cell Count 15.36 K/mm3 (4.00-11.30)
[2020-08-01 15:44] LABS: Troponin I 0.107 ng/mL (0.000-0.040)
[2020-08-01 15:45] LABS: Albumin, Blood 2.4 g/dL (3.4-5.0); Albumin/Globulin Ratio 0.5 (0.8-1.8); Bilirubin, Total 0.9 mg/dL (0.1-1.0); Bun/Creatinine Ratio 12.7 (12.0-20.0); Calcium, Blood 9.3 mg/dL (8.5-10.1); Creatinine, Blood 3.39 mg/dL (0.40-1.00); Globulin, Blood 4.6 g/dL (2.2-4.0); Potassium, Blood 4.4 mmol/L (3.5-5.5)
[2020-08-01 16:13] LABS: Influenza A, PCR Negative (NEGATIVE); Influenza B, PCR Negative (NEGATIVE); Resp Syncytial Virus, PCR Negative (NEGATIVE); SARS-Cov-2 (COVID-19) PCR, MMC Negative (NEGATIVE)
[2020-08-01] MEDS ORDERED: PLAVIX75 MG PO (16:40)
[2020-08-01] MEDS ORDERED: Ultram50 MG PO (16:41)
[2020-08-01] MEDS ORDERED: CALCIUM ACETAT667 M2 PO (16:42)
[2020-08-01] MEDS ORDERED: CALCIUM ACETAT667 MG PO (16:43)
[2020-08-01] MEDS ORDERED: Nexavar200 MG PO (16:44)
[2020-08-01] MEDS ORDERED: CLON.1 PO ×2 (17:04)
[2020-08-01] MEDS ORDERED: FURO80 PO (17:05)
[2020-08-01] MEDS ORDERED: MIDO5 PO (17:06)
[2020-08-01] MEDS ORDERED: LOSA50 PO ×2 (17:08)
[2020-08-01] MEDS ORDERED: CINA30 PO (17:09)
[2020-08-01] MEDS ORDERED: AURYXIA210 MG PO ×2 (17:09)
[2020-08-01] MEDS ORDERED: Rena-Vite Tabl0.8 MG PO (17:10)
[2020-08-01] MEDS ORDERED: BASAGLAR K100 UNIT/6 SC ×2 (17:35)
[2020-08-02 02:04] LABS: Source, Urine Clean Catch
[2020-08-02 02:07] LABS: Blood, Urine 1+ (Neg); Glucose Qualitative, Urine 1+ (Neg); Ketones, Urine 2+ (Neg); Leukocyte Esterase, Urine 2+ (Neg); Nitrite, Urine Pos (Neg); Protein, Urine 4+ (Neg); Specific Gravity, Urine 1.025 (1.003-1.022); Urobilinogen, Urine 1+ (Normal)
[2020-08-02 02:12] LABS: Appearance, Urine Cloudy (Clear); Bilirubin, Urine 1+ (Neg); Color, Urine Brown (P-Yellow)
[2020-08-02 02:15] LABS: Amorphous Mod (0-Heavy); Bacteria Many /hpf; Red Blood Cells, Urine 0-2 /hpf (0-2); Squamous Epithelial Cells Many /hpf (Few); Transitional Epithelial Cells Few /hpf (0-Rare); White Blood Cells, Urine 25-50 /hpf (0-5)
[2020-08-02] MEDS ORDERED: HYDR1TAB94 PO ×2 (05:01)
--- NOTE | 2020-08-02 05:11 | NUR ---
SHIFT SUMMARY PT NEW ED ADMIT THIS EVENING. HEADING FROM ED TO RESIDENTIAL SUPPORT SPECIALIST FOR PERMACATH REPLACEMENT THEN TO ROOM 305. PERMACATH TO R CHEST WALL. DRESSING REMAINED INTACT FROM RESIDENTIAL SUPPORT SPECIALIST. NO BLEEDING NOTED. NO PAIN REPORTED AT SITE. PT DID REPORT SOME MILD ABD PAIN BUT DENIES ANY NEEDS FOR PAIN MEDICATION. STATES THAT IT DOESN'T HURT IF SHE DOESN'T MOVE. PT ON RA. PT REPORTED THAT SHE HAD DIALYSIS YESTERDAY 08/01 BEFORE BEING SENT TO ED. PT VOIDED ONLY A SMALL AMOUNT ONCE THIS SHIFT WHICH PT REPORTS IS NORMAL FOR HER. VITAL SIGNS STABLE. WILL CONTINUE TO MONITOR.
[2020-08-02 05:14] LABS: BASOPHILS ABSOLUTE AUTO 0.03 K/mm3 (0.00-0.23); BASOPHILS PERCENT AUTO 0 % (0-2); EOSINOPHILS PERCENT AUTO 0 % (0-6); Hematocrit 31.1 % (33.0-51.0); Hemoglobin 9.2 g/dL (11.5-16.0); IMMATURE GRAN ABSOLUTE AUTO 0.17 K/mm3 (0.00-0.10); IMMATURE GRAN PERCENT AUTO 1 % (0-1); LYMPHOCYTES ABSOLUTE AUTO 1.59 K/mm3 (0.84-5.20); LYMPHOCYTES PERCENT AUTO 10 % (21-46); MONOCYTES ABSOLUTE AUTO 0.98 K/mm3 (0.16-1.47); MONOCYTES PERCENT AUTO 6 % (4-13); Mean Corpuscular HGB 27.2 pg (26.0-34.0); Mean Corpuscular HGB Conc 29.6 g/dL (31.5-36.5); Mean Corpuscular Volume 92 fL (80-100); Mean Platelet Volume 10.6 fL (9.1-12.4); NEUTROPHILS ABSOLUTE AUTO 13.38 K/mm3 (1.96-9.15); NEUTROPHILS PERCENT AUTO 83 % (41-73); NRBC ABSOLUTE 0.03 K/mm3 (0.00-0.02); NRBC Auto 0.2 /100 WBC (0.0-0.2); Platelet Count 217 K/mm3 (150-400); RDW Coefficient Variation 20.3 % (11.7-14.2); RDW Standard Deviation 67.6 fL (35.1-46.3); Red Blood Cell Count 3.38 M/mm3 (3.80-5.20); White Blood Cell Count 16.15 K/mm3 (4.00-11.30)
[2020-08-02 05:55] LABS: Albumin, Blood 2.3 g/dL (3.4-5.0); Albumin/Globulin Ratio 0.5 (0.8-1.8); Bilirubin, Total 0.8 mg/dL (0.1-1.0); Bun/Creatinine Ratio 13.9 (12.0-20.0); Calcium, Blood 9.2 mg/dL (8.5-10.1); Creatinine, Blood 4.4 mg/dL (0.40-1.00); Globulin, Blood 4.2 g/dL (2.2-4.0); Potassium, Blood 4.6 mmol/L (3.5-5.5); Total Protein, Blood 6.5 g/dL (6.4-8.2)
[2020-08-02 06:00] LABS: Troponin I 0.766 ng/mL (0.000-0.040)
--- NOTE | 2020-08-02 17:12 | NUR ---
SHIFT SUMMARY PT UP TO BATHROOM INDEPENDENTLY. DIALYSIS COMPLETED THIS MORNING AFTER ABDOMENAL CT WITH CONTRAST DONE. PT REPORTS ABDOMENAL TENDERNESS WITH PALPATION BUT NO NAUSEA OR POOR APPETITE. SLEEPING ON AND OFF TODAY. SPOKE BRANDEN DIEGO PER PT REQUEST ABOUT CURRENT CONDITION AND POSSIBLE PLAN. UNABLE TO CALL A DERMATOLOGY CONSULT TODAY DUE TO NO OFFICES BEING OPEN. NOTE LEFT IN ORDERS TO BE FOLLOWED THROUGH WITH.
--- NOTE | 2020-08-03 04:58 | NUR ---
SHIFT SUMMARY PT HAD NO COMPLAINTS THIS EVENING. DR. CALIX IN TO SEE PT FOR CARDIOLOGY CONSULT. NEW ORDERS FOR ECHO AND LEXISCAN. PT MADE NPO AT 0200 FOR POTENTIAL LEXISCAN TODAY. PT HAD NO COMPLAINTS OF CHEST PAIN OR SOB. CONTINUED TO REPORT SOME ABD DISCOMFORT BUT STATED THAT IT WAS ONLY PAINFUL WHEN BEING PALPATED. NO NAUSEA. NEW PERMACATH SITE TO R CHEST WALL WITH NO SIGNS OF BLEEDING OR INFECTION. VITAL SIGNS STABLE. WILL CONTINUE TO MONITOR.
[2020-08-03 05:08] LABS: Hemoglobin 9.2 g/dL (11.5-16.0)
[2020-08-03 05:37] LABS: Albumin, Blood 2.3 g/dL (3.4-5.0); Anion Gap 9 mmol/L (6-16); Blood Urea Nitrogen 58 mg/dL (8-24); Bun/Creatinine Ratio 13.3 (12.0-20.0); CO2, Blood 30 mmol/L (21-32); Chloride, Blood 95 mmol/L (98-108); Creatinine, Blood 4.36 mg/dL (0.40-1.00); Glomerular Filtration Rate 10 (60-); Glucose, Blood 129 mg/dL (70-99); Magnesium, Blood 2.6 mg/dL (1.6-2.4); Phosphorus, Blood 4.7 mg/dL (2.5-4.9); Potassium, Blood 4.4 mmol/L (3.5-5.5); Sodium, Blood 134 mmol/L (136-145)
--- NOTE | 2020-08-03 12:40 | NUR ---
Echocardiogram completed.
--- NOTE | 2020-08-03 14:44 | NUR ---
SHIFT SUMMARY PATIENT HAS BEEN PLEASANT AND COOPERATIVE WITH STAFF. HAD ECHO COMPLETED THIS AM AND AWAITING LEXISCAN TO BE PERFORMED. PATIENT HAS BEEN NPO. VITALS HAVE BEEN STABLE AND WNL. PATIENT CONTINUES ON PO ABX WITHOUT S/SX OF ADVERSE REACTIONS NOTED OR REPORTED. INDEPENDANT/SBA IN ROOM; ALERT AND ORIENTED X4. CALLS FOR STAFF ASSIST APPROPRIATELY NEEDED. WILL CONTINUE TO MONITOR AND PROVIDE CARE.
[2020-08-04 04:37] LABS: BASOPHILS ABSOLUTE AUTO 0.01 K/mm3 (0.00-0.23); BASOPHILS PERCENT AUTO 0 % (0-2); EOSINOPHILS ABSOLUTE AUTO 0.02 K/mm3 (0.00-0.68); EOSINOPHILS PERCENT AUTO 0 % (0-6); Hematocrit 30.5 % (33.0-51.0); IMMATURE GRAN ABSOLUTE AUTO 0.07 K/mm3 (0.00-0.10); IMMATURE GRAN PERCENT AUTO 1 % (0-1); LYMPHOCYTES ABSOLUTE AUTO 1.26 K/mm3 (0.84-5.20); LYMPHOCYTES PERCENT AUTO 12 % (21-46); MONOCYTES ABSOLUTE AUTO 0.66 K/mm3 (0.16-1.47); MONOCYTES PERCENT AUTO 6 % (4-13); Mean Corpuscular HGB 26.9 pg (26.0-34.0); Mean Corpuscular HGB Conc 29.5 g/dL (31.5-36.5); Mean Corpuscular Volume 91 fL (80-100); Mean Platelet Volume 10.4 fL (9.1-12.4); NEUTROPHILS ABSOLUTE AUTO 8.83 K/mm3 (1.96-9.15); NEUTROPHILS PERCENT AUTO 81 % (41-73); NRBC ABSOLUTE 0.02 K/mm3 (0.00-0.02); NRBC Auto 0.2 /100 WBC (0.0-0.2); Platelet Count 186 K/mm3 (150-400); RDW Coefficient Variation 19.7 % (11.7-14.2); RDW Standard Deviation 65.2 fL (35.1-46.3); Red Blood Cell Count 3.35 M/mm3 (3.80-5.20); White Blood Cell Count 10.85 K/mm3 (4.00-11.30)
[2020-08-04 04:55] LABS: Albumin, Blood 2.4 g/dL (3.4-5.0); Anion Gap 11 mmol/L (6-16); Blood Urea Nitrogen 86 mg/dL (8-24); Bun/Creatinine Ratio 14.9 (12.0-20.0); CO2, Blood 26 mmol/L (21-32); Calcium, Blood 8.9 mg/dL (8.5-10.1); Chloride, Blood 95 mmol/L (98-108); Creatinine, Blood 5.77 mg/dL (0.40-1.00); Glomerular Filtration Rate 7 (60-); Glucose, Blood 133 mg/dL (70-99); Magnesium, Blood 2.6 mg/dL (1.6-2.4); Phosphorus, Blood 5.7 mg/dL (2.5-4.9); Potassium, Blood 4.7 mmol/L (3.5-5.5); Sodium, Blood 132 mmol/L (136-145)
--- NOTE | 2020-08-04 05:01 | NUR ---
SUPERVISOR LABORATORY ANIMAL FACILITY SUMMARY PT DENIED ANY PAIN OR NAUSEA THIS SHIFT. TELE MONITOR CALLED ONCE TO REPORT THAT THE PT HAD A BRIEF SPIKE OF AFIB INTO THE 130'S, THE PT WAS ASSESSED AND WAS ASYMPTOMATIC, NO OTHER TELE EVENTS. PT SLEPT FOR MOST OF THE NIGHT W CALL LIGHT WITHIN REACH.
--- NOTE | 2020-08-05 04:35 | NUR ---
DRY END OPERATOR SUMMARY PT DENIED ANY PAIN OR NAUSEA THIS SHIFT. HELD PT'S BLOOD PRESSURE MEDICATION DUE TO LOW BP'S FOLLOWING DIALYSIS YESTERDAY. PT HAS BEEN NPO SINCE MIDNIGHT WITH Q6H CBG'S REQUIRING NO COVERAGE THIS SHIFT. WOUND ON SACRUM WAS CLEANED AND BANDAGE CHANGED, PHOTO'S IN THE CHART. NO TELE EVENTS JENNY ANDERSON.
[2020-08-05 04:56] LABS: BASOPHILS ABSOLUTE AUTO 0.01 K/mm3 (0.00-0.23); BASOPHILS PERCENT AUTO 0 % (0-2); EOSINOPHILS ABSOLUTE AUTO 0.03 K/mm3 (0.00-0.68); EOSINOPHILS PERCENT AUTO 0 % (0-6); Hematocrit 30.8 % (33.0-51.0); IMMATURE GRAN ABSOLUTE AUTO 0.07 K/mm3 (0.00-0.10); IMMATURE GRAN PERCENT AUTO 1 % (0-1); LYMPHOCYTES ABSOLUTE AUTO 1.03 K/mm3 (0.84-5.20); LYMPHOCYTES PERCENT AUTO 11 % (21-46); MONOCYTES PERCENT AUTO 8 % (4-13); Mean Corpuscular HGB 26.7 pg (26.0-34.0); Mean Corpuscular HGB Conc 29.2 g/dL (31.5-36.5); Mean Corpuscular Volume 91 fL (80-100); Mean Platelet Volume 10.5 fL (9.1-12.4); NEUTROPHILS ABSOLUTE AUTO 7.17 K/mm3 (1.96-9.15); NEUTROPHILS PERCENT AUTO 80 % (41-73); NRBC ABSOLUTE 0.02 K/mm3 (0.00-0.02); NRBC Auto 0.2 /100 WBC (0.0-0.2); Platelet Count 181 K/mm3 (150-400); RDW Coefficient Variation 19.8 % (11.7-14.2); RDW Standard Deviation 65.1 fL (35.1-46.3); Red Blood Cell Count 3.37 M/mm3 (3.80-5.20); White Blood Cell Count 9.01 K/mm3 (4.00-11.30)
[2020-08-05 05:17] LABS: Albumin, Blood 2.4 g/dL (3.4-5.0); Anion Gap 9 mmol/L (6-16); Blood Urea Nitrogen 55 mg/dL (8-24); Bun/Creatinine Ratio 12.3 (12.0-20.0); CO2, Blood 30 mmol/L (21-32); Calcium, Blood 8.8 mg/dL (8.5-10.1); Chloride, Blood 100 mmol/L (98-108); Creatinine, Blood 4.46 mg/dL (0.40-1.00); Glomerular Filtration Rate 10 (60-); Glucose, Blood 143 mg/dL (70-99); Magnesium, Blood 2.5 mg/dL (1.6-2.4); Phosphorus, Blood 4.6 mg/dL (2.5-4.9); Potassium, Blood 4.1 mmol/L (3.5-5.5); Sodium, Blood 139 mmol/L (136-145)
[2020-08-05] MEDS ORDERED: Metoprolol Succ25 MG PO (15:08)
--- NOTE | 2020-08-05 17:54 | NUR ---
DISCHARGE DISCHARGE HOME IN CARE OF OSMIN BRANDIE, WHO WAS CALLED WITH UPDATES PRIOR TO PATIENT'S DISCHARGE. MEDICATIONS SENT TO BERNIE ESTRADA, PER PT REQUEST. PT AND BRANDIE VERBALIZED UNDERSTANDING OF THE DISCHARGE PAPERWORK AND ALL QUESTIONS WERE ANSWERED. PERSONAL BELONGINGS WERE SENT HOME WITH PATIENT.
== END 2020-08-05 17:24 | disposition home or self-care (01) | DRG 280 ==
LOC: ER 14:29 → MEDS 14:30
PROVIDERS: Family Medicine; Internal Medicine Endocrinology, Diabetes & Metabolism; Internal Medicine Nephrology; Physician Assistant; Radiology Diagnostic Radiology; ADMIT Hospitalist
PROC: 0J2TXYZ Change Other Device in Trunk Subcutaneous Tissue and Fascia, External Approach (ICD-10-PCS; principal; 2020-08-01)
PROC: 5A1D70Z Performance of Urinary Filtration, Intermittent, Less than 6 Hours Per Day (ICD-10-PCS; 2020-08-02)
PROC: 5A1D70Z Performance of Urinary Filtration, Intermittent, Less than 6 Hours Per Day (ICD-10-PCS; 2020-08-04)
DX: T82.838A Hemorrhage due to vascular prosthetic devices, implants and grafts, initial encounter (principal); N18.6 End stage renal disease; I21.4 Non-ST elevation (NSTEMI) myocardial infarction; I13.2 Hypertensive heart and chronic kidney disease with heart failure and with stage 5 chronic kidney disease, or end stage renal disease; I50.32 Chronic diastolic (congestive) heart failure; N39.0 Urinary tract infection, site not specified; E87.1 Hypo-osmolality and hyponatremia; N25.81 Secondary hyperparathyroidism of renal origin; C22.8 Malignant neoplasm of liver, primary, unspecified as to type; Z20.828 Contact with and (suspected) exposure to other viral communicable diseases; D73.5 Infarction of spleen; E11.22 Type 2 diabetes mellitus with diabetic chronic kidney disease; I08.1 Rheumatic disorders of both mitral and tricuspid valves; B96.20 Unspecified Escherichia coli [E. coli] as the cause of diseases classified elsewhere; E78.5 Hyperlipidemia, unspecified; J44.9 Chronic obstructive pulmonary disease, unspecified; M17.0 Bilateral primary osteoarthritis of knee; E55.9 Vitamin D deficiency, unspecified; D63.1 Anemia in chronic kidney disease; I44.0 Atrioventricular block, first degree; E87.70 Fluid overload, unspecified; L89.152 Pressure ulcer of sacral region, stage 2; E66.9 Obesity, unspecified; Z85.828 Personal history of other malignant neoplasm of skin; Z99.2 Dependence on renal dialysis; Z88.1 Allergy status to other antibiotic agents; Z88.8 Allergy status to other drugs, medicaments and biological substances; Z79.02 Long term (current) use of antithrombotics/antiplatelets; Z79.4 Long term (current) use of insulin; Z79.891 Long term (current) use of opiate analgesic; Z79.899 Other long term (current) drug therapy; Z68.31 Body mass index [BMI] 31.0-31.9, adult
CPT/HCPCS: 0241U; 36415; 36581; 71045; 74177; 78452; 80053; 80069; 81001; 82947; 83690; 83735; 83880; 84484; 85014; 85018; 85025; 87077; 87086; 87186; 93005; 93010; 93017; 93308; 94760; 99285-25; A9270-GY; A9500; G0378; J0696; J0881; J1644; J2250; J2785; J3010; J7040; Q9967

== ENCOUNTER 2020-08-08 06:40 | Day surgery (SDC) | payer MEDICARE, BC ==
[~2020-08-08] VITALS: Ht 157.5 cm; Wt 77.7 kg
[~2020-08-08 06:40] MED LIST changes: +AURYXIA210 MG PO; +BASAGLAR K100 UNIT/6 SC; +CALCIUM ACETAT667 M2 PO; +CALCIUM ACETAT667 MG PO; +CINA30 PO; +MIDO5 PO; +Metoprolol Succ25 MG PO; +Nexavar200 MG PO; +PLAVIX75 MG PO; +Rena-Vite Tabl0.8 MG PO; +Ultram50 MG PO
[2020-08-08] MEDS ORDERED: FURO40 PO (07:44)
--- NOTE | 2020-08-08 11:26 | NUR ---
discharge instructions written and verbal given to patient. dressing dry and intact to upper right chest. iv dced with catheter intact. patient transferred via w/c to waiting car with family driving.
[2020-08-09] MEDS ORDERED: TRAM50 PO (14:18)
[2020-08-09] MEDS ORDERED: SEMGLEE PE100 UNIT/1 (14:20)
== END 2020-08-08 12:06 | disposition home or self-care (01) ==
LOC: MHTC 06:40
DX: Z49.01 Encounter for fitting and adjustment of extracorporeal dialysis catheter (principal); I12.0 Hypertensive chronic kidney disease with stage 5 chronic kidney disease or end stage renal disease; E11.22 Type 2 diabetes mellitus with diabetic chronic kidney disease; N18.6 End stage renal disease; D63.1 Anemia in chronic kidney disease; E78.5 Hyperlipidemia, unspecified; J45.909 Unspecified asthma, uncomplicated; E55.9 Vitamin D deficiency, unspecified; Z96.652 Presence of left artificial knee joint; Z88.8 Allergy status to other drugs, medicaments and biological substances; Z79.02 Long term (current) use of antithrombotics/antiplatelets; Z79.899 Other long term (current) drug therapy; Z91.048 Other nonmedicinal substance allergy status
CPT/HCPCS: 36581; 82947; 99152; 99153; C1750; C1769; C1894; J1644; J2250; J3010; J7040

== ENCOUNTER 2020-08-09 00:33 | Day surgery (SDC) | payer MEDICARE, BC ==
[~2020-08-09 00:33] MED LIST changes: +FURO40 PO
[2020-08-09] MEDS ORDERED: TRAM50 PO (14:18)
[2020-08-09] MEDS ORDERED: SEMGLEE PE100 UNIT/1 (14:20)
== END 2020-08-09 23:26 | disposition home or self-care (01) ==
LOC: WOUND
DX: I96 Gangrene, not elsewhere classified (principal); L89.153 Pressure ulcer of sacral region, stage 3; E11.52 Type 2 diabetes mellitus with diabetic peripheral angiopathy with gangrene; E11.36 Type 2 diabetes mellitus with diabetic cataract; H26.9 Unspecified cataract; J45.909 Unspecified asthma, uncomplicated; I12.0 Hypertensive chronic kidney disease with stage 5 chronic kidney disease or end stage renal disease; E11.22 Type 2 diabetes mellitus with diabetic chronic kidney disease; N18.6 End stage renal disease; D63.1 Anemia in chronic kidney disease; E78.5 Hyperlipidemia, unspecified; M10.9 Gout, unspecified; M19.90 Unspecified osteoarthritis, unspecified site; K74.60 Unspecified cirrhosis of liver; Z92.21 Personal history of antineoplastic chemotherapy; Z79.02 Long term (current) use of antithrombotics/antiplatelets; Z79.899 Other long term (current) drug therapy; Z91.048 Other nonmedicinal substance allergy status
CPT/HCPCS: G0463

== ENCOUNTER 2020-08-09 10:21 | Observation (INO) | payer MEDICARE, BC ==
[~2020-08-09] VITALS: Ht 157.5 cm; Wt 83.7 kg
[2020-08-09 11:21] LABS: BASOPHILS ABSOLUTE AUTO 0.02 K/mm3 (0.00-0.23); BASOPHILS PERCENT AUTO 0 % (0-2); EOSINOPHILS PERCENT AUTO 0 % (0-6); Hematocrit 34.6 % (33.0-51.0); Hemoglobin 10.1 g/dL (11.5-16.0); IMMATURE GRAN ABSOLUTE AUTO 0.26 K/mm3 (0.00-0.10); IMMATURE GRAN PERCENT AUTO 2 % (0-1); LYMPHOCYTES ABSOLUTE AUTO 1.13 K/mm3 (0.84-5.20); LYMPHOCYTES PERCENT AUTO 8 % (21-46); MONOCYTES ABSOLUTE AUTO 0.65 K/mm3 (0.16-1.47); MONOCYTES PERCENT AUTO 5 % (4-13); Mean Corpuscular HGB 26.6 pg (26.0-34.0); Mean Corpuscular HGB Conc 29.2 g/dL (31.5-36.5); Mean Corpuscular Volume 91 fL (80-100); Mean Platelet Volume 10.7 fL (9.1-12.4); NEUTROPHILS ABSOLUTE AUTO 12.01 K/mm3 (1.96-9.15); NEUTROPHILS PERCENT AUTO 86 % (41-73); NRBC ABSOLUTE 0.03 K/mm3 (0.00-0.02); NRBC Auto 0.2 /100 WBC (0.0-0.2); Platelet Count 312 K/mm3 (150-400); RDW Coefficient Variation 20.2 % (11.7-14.2); RDW Standard Deviation 66.1 fL (35.1-46.3); White Blood Cell Count 14.07 K/mm3 (4.00-11.30)
[2020-08-09 11:50] LABS: Albumin, Blood 2.6 g/dL (3.4-5.0); Albumin/Globulin Ratio 0.6 (0.8-1.8); Bilirubin, Total 1.1 mg/dL (0.1-1.0); Bun/Creatinine Ratio 14.1 (12.0-20.0); Calcium, Blood 7.9 mg/dL (8.5-10.1); Creatinine, Blood 8.96 mg/dL (0.40-1.00); Globulin, Blood 4.4 g/dL (2.2-4.0); Potassium, Blood 6.1 mmol/L (3.5-5.5)
[2020-08-09] MEDS ORDERED: TRAM50 PO ×2 (14:18)
[2020-08-09] MEDS ORDERED: SEMGLEE PE100 UNIT/1 ×2 (14:20)
[2020-08-09 17:22] LABS: Influenza A, PCR Negative (NEGATIVE); Influenza B, PCR Negative (NEGATIVE); Resp Syncytial Virus, PCR Negative (NEGATIVE); SARS-Cov-2 (COVID-19) PCR, MMC Negative (NEGATIVE)
--- NOTE | 2020-08-09 18:36 | NUR ---
PATIENT ARRIVED FROM ED VIA GURNEY, ABLE TO AMBULATE WITH NURSE ASSIST TO BED. PATIENT DENIES PAIN, NO SIGNS OF ACUTE DISTRESS. ASSESSMENT DONE AND THEN PATIENT PROMPTLY TAKEN TO CARPENTER MAINTENANCE.
[2020-08-10 03:49] LABS: BASOPHILS ABSOLUTE AUTO 0.01 K/mm3 (0.00-0.23); BASOPHILS PERCENT AUTO 0 % (0-2); EOSINOPHILS ABSOLUTE AUTO 0.01 K/mm3 (0.00-0.68); EOSINOPHILS PERCENT AUTO 0 % (0-6); Hematocrit 30.1 % (33.0-51.0); IMMATURE GRAN ABSOLUTE AUTO 0.13 K/mm3 (0.00-0.10); IMMATURE GRAN PERCENT AUTO 1 % (0-1); LYMPHOCYTES ABSOLUTE AUTO 1.09 K/mm3 (0.84-5.20); LYMPHOCYTES PERCENT AUTO 12 % (21-46); MONOCYTES ABSOLUTE AUTO 0.54 K/mm3 (0.16-1.47); MONOCYTES PERCENT AUTO 6 % (4-13); Mean Corpuscular HGB 26.5 pg (26.0-34.0); Mean Corpuscular HGB Conc 29.9 g/dL (31.5-36.5); Mean Corpuscular Volume 89 fL (80-100); NEUTROPHILS ABSOLUTE AUTO 7.51 K/mm3 (1.96-9.15); NEUTROPHILS PERCENT AUTO 81 % (41-73); NRBC ABSOLUTE 0.03 K/mm3 (0.00-0.02); NRBC Auto 0.3 /100 WBC (0.0-0.2); Platelet Count 229 K/mm3 (150-400); RDW Coefficient Variation 20.2 % (11.7-14.2); RDW Standard Deviation 63.5 fL (35.1-46.3); Red Blood Cell Count 3.39 M/mm3 (3.80-5.20); White Blood Cell Count 9.29 K/mm3 (4.00-11.30)
[2020-08-10 04:09] LABS: Albumin, Blood 2.4 g/dL (3.4-5.0); Albumin/Globulin Ratio 0.6 (0.8-1.8); Bilirubin, Total 1.1 mg/dL (0.1-1.0); Bun/Creatinine Ratio 12.2 (12.0-20.0); Calcium, Blood 7.6 mg/dL (8.5-10.1); Creatinine, Blood 6.38 mg/dL (0.40-1.00); Globulin, Blood 3.7 g/dL (2.2-4.0); Magnesium, Blood 2.7 mg/dL (1.6-2.4); Phosphorus, Blood 7.2 mg/dL (2.5-4.9); Potassium, Blood 4.6 mmol/L (3.5-5.5); Total Protein, Blood 6.1 g/dL (6.4-8.2)
--- NOTE | 2020-08-10 05:10 | NUR ---
SHIFT SUMMARY PT ARRIVED FROM THE SOFTWARE ASSET MANAGEMENT ANALYST AROUND 1944 IN STABLE CONDTION. PT THEN STARTED DIALYSIS IN THE NEWLY PLACED CATH WITHOUT PROBLEM. THE CATH SITE WAS WNL AND THE DRESSING WAS CDI. MINIMAL DRAINAGE/BLEEDING FROM SURGICAL INCISION JUST ABOVE CATH SITE. PT SATED HAVING NO PAIN. VITALS WERE STABLE, BP WAS HYPOTENSIVE DURING DIALYSIS BUT CAME UP TO THE LOW 100'S SYSTOLIC SHORTLY AFTER. HR WAS AFIB IN THE 70'S BPM. PT WAS ON ROOM AIR WITH SATS IN THE 90'S. PRESSURE ULCER WAS PRESENT ON ADMISSION, PHOTOS WERE TAKEN AND PLACED IN CHART, STAGE 3 PRESSURE ULCER WITH YELLOW/KEATING PURULENT DRAINAGE. PT DID STATE SHE WAS VERY ITCHY T/O AND IT HAD STARTED SEVERAL WEEKS AGO. SHE HAS SMALL SCABS T/O, <1CM THAT PT STATES IS POSSIBLY FROM SCRATCHING. PT WAS ABLE TO GET SOME REST. WILL CONTINUE TO MONITOR UNTIL SHIFT CHANGE.
--- NOTE | 2020-08-10 09:06 | NUR ---
09 TO DIALYSIS PER BED
--- NOTE | 2020-08-10 12:14 | NUR ---
returned to room post dialysis, pt tells me physician visited during dialysis and she will be going home today
--- NOTE | 2020-08-10 14:21 | NUR ---
1350 DISCHARGED TO HOME WITH OSMIN
== END 2020-08-10 13:55 | disposition home or self-care (01) ==
LOC: ER 10:21 → PCU 16:54
PROVIDERS: Emergency Medicine; Family Medicine; Radiology Diagnostic Radiology; ADMIT Family Medicine
DX: T82.41XA Breakdown (mechanical) of vascular dialysis catheter, initial encounter (principal); E87.5 Hyperkalemia; I13.2 Hypertensive heart and chronic kidney disease with heart failure and with stage 5 chronic kidney disease, or end stage renal disease; E11.22 Type 2 diabetes mellitus with diabetic chronic kidney disease; N18.6 End stage renal disease; I50.32 Chronic diastolic (congestive) heart failure; D63.1 Anemia in chronic kidney disease; N25.81 Secondary hyperparathyroidism of renal origin; J45.909 Unspecified asthma, uncomplicated; E78.5 Hyperlipidemia, unspecified; C22.8 Malignant neoplasm of liver, primary, unspecified as to type; L89.311 Pressure ulcer of right buttock, stage 1; L89.153 Pressure ulcer of sacral region, stage 3; E55.9 Vitamin D deficiency, unspecified; Z99.2 Dependence on renal dialysis; Z91.048 Other nonmedicinal substance allergy status; Z79.02 Long term (current) use of antithrombotics/antiplatelets; Z79.4 Long term (current) use of insulin; Z79.899 Other long term (current) drug therapy; Z66 Do not resuscitate; Z96.652 Presence of left artificial knee joint; Z20.828 Contact with and (suspected) exposure to other viral communicable diseases; Z23 Encounter for immunization; Y84.1 Kidney dialysis as the cause of abnormal reaction of the patient, or of later complication, without mention of misadventure at the time of the procedure
CPT/HCPCS: 0241U; 36415; 71045; 80053; 83735; 84100; 84132; 84134; 85025; 99152; 99153; 99285-25; C1725; C1750; C1769; G0257; J0881; J1644; J2250; J3010; J7040; Q9967

== ENCOUNTER 2020-09-13 06:59 | Emergency (ER) | payer MEDICARE, BC ==
[~2020-09-13] VITALS: Ht 157.5 cm; Wt 79.4 kg
[~2020-09-13 06:59] MED LIST changes: +SEMGLEE PE100 UNIT/1; +TRAM50 PO
[2020-09-13 08:37] LABS: Influenza A, PCR Negative (NEGATIVE); Influenza B, PCR Negative (NEGATIVE); Resp Syncytial Virus, PCR Negative (NEGATIVE); SARS-Cov-2 (COVID-19) PCR, MMC Negative (NEGATIVE)
--- NOTE | 2020-09-13 10:22 | NUR ---
PT BROUGHT BACK TO RECOVERY ROOM VIA RECLINER, AOX3. DENIES PAIN. NEW PERMACATH DIALYSIS CATHETER PLACED ON RIGHT SIDE CHEST. NO SIGNS OF BLEEDING OR OOZING NOTED. PROVIDED PT WITH MEAL TRAY, TOLERATES PO FLUIDS/FOOD WITH NO DIFFICULTIES. DAUGHTER PRESENT AT BEDSIDE. VSS. CALL LIGHT IN REACH.
--- NOTE | 2020-09-13 11:30 | NUR ---
PT AND HER DAUGHTER VERBALIZED UNDERSTANDING OF D/C INSTRUCTIONS. DRESSING ON RIGHT SIDE CHEST INTACT, NO ACTIVE BLEEDING OR OOZING NOTED. PT ABLE TO GET DRESSED WITH ASSISTANCE FROM DAUGHTER. PAPERWORK PROVIDED IN FOLDER TO TAKE HOME. IV REMOVED WITH CATHETER INTACT, PRESSURE DRESSING APPLIED. NADN AT TIME OF DISPO. VSS.
== END 2020-09-13 08:50 | disposition other institution (70) ==
LOC: ER 06:59
PROVIDERS: Emergency Medicine
DX: T82.49XA Other complication of vascular dialysis catheter, initial encounter (principal); C22.9 Malignant neoplasm of liver, not specified as primary or secondary; I13.0 Hypertensive heart and chronic kidney disease with heart failure and stage 1 through stage 4 chronic kidney disease, or unspecified chronic kidney disease; E11.22 Type 2 diabetes mellitus with diabetic chronic kidney disease; N18.6 End stage renal disease; I50.30 Unspecified diastolic (congestive) heart failure; E78.00 Pure hypercholesterolemia, unspecified; Z79.899 Other long term (current) drug therapy; Z20.822 Contact with and (suspected) exposure to COVID-19; Z51.5 Encounter for palliative care; Z79.02 Long term (current) use of antithrombotics/antiplatelets
CPT/HCPCS: 0241U; 36581; 77001; 99152; 99153; 99284; C1750; C1769; J0690; J1644; J2250; J3010; J7040